=== PATIENT | female | born 1990 | race Caucasian/White ===

== ENCOUNTER 2025-01-19 15:50 | Outpatient (CLI) | payer OTHER, SELFPAY ==
[2025-01-21 11:18] LABS: HPV Source Endocervical
[2025-01-25 07:58] LABS: Pap Test Digital Imaging Done
== END 2025-01-19 15:51 | disposition home or self-care (01) ==
PROVIDERS: PCP Family Medicine; Visit Provider Family Medicine
DX: Z12.4 Encounter for screening for malignant neoplasm of cervix (principal); Z00.00 Encounter for general adult medical examination without abnormal findings; D64.9 Anemia, unspecified
CPT/HCPCS: 80053; 80061; 86803; 87624; 87625; 88141; 88142; 88175